=== PATIENT | male | born 1970 | race African-American/Black ===

== ENCOUNTER 2023-06-30 10:40 | Emergency (ER) | payer MEDICAID ==
[~2023-06-30] VITALS: Ht 175.3 cm; Wt 146.0 kg
[2023-06-30 10:53] VITALS: TEMP 98.7; O2SAT 96
[2023-06-30 11:45] VITALS: BP 159/102; PULSE 110; RESP 18
[2023-06-30] MEDS ORDERED: LIDOCAINE HCL/PF 1% 10 MG/ML 5ML VIAL INFIL ONE ×2 (11:45→12:30)
[2023-06-30] MEDS ORDERED: IBUPROFEN 600MG TABLET PO ONE (11:45)
[2023-06-30] MEDS ORDERED: BACITRACIN ZINC OINT UDPKT TOP ONE (11:45)
[2023-06-30] MEDS ORDERED: CEPH500C2 MT (13:09)
[2023-06-30] MEDS ORDERED: SULF1TAB48 PO (13:09)
[2023-06-30] MEDS ORDERED: IBUP-2029 PO (13:09)
== END 2023-06-30 13:42 | disposition home or self-care (01) ==
LOC: ER 10:40
DX: L02.31 Cutaneous abscess of buttock (principal)
CPT/HCPCS: 82962; 10060; 99283; J3490; Z7610 ×2

== ENCOUNTER 2023-07-13 10:19 | Emergency (ER) | payer MEDICAID ==
[~2023-07-13] VITALS: Ht 175.3 cm; Wt 146.0 kg
[~2023-07-13 10:19] MED LIST: CEPH500C2 MT; IBUP-2029 PO; SULF1TAB48 PO
[2023-07-13 10:27] VITALS: BP 131/89; PULSE 89; RESP 16; TEMP 98.7; O2SAT 99
[2023-07-13] MEDS ORDERED: BACITRACIN ZINC OINT UDPKT TOP ONE (10:45)
[2023-07-13] MEDS ORDERED: LIDOCAINE HCL/PF 1% 10 MG/ML 5ML VIAL INFIL ONE (10:45)
[2023-07-13] MEDS ORDERED: CLIN-116 MT (12:36)
== END 2023-07-13 12:47 | disposition home or self-care (01) ==
LOC: ER 10:19
DX: L02.31 Cutaneous abscess of buttock (principal)
CPT/HCPCS: 10060; 99283; J3490; Z7610 ×2

== ENCOUNTER 2023-12-28 10:56 | Emergency (ER) | payer MEDICAID ==
[~2023-12-28] VITALS: Ht 177.8 cm; Wt 119.0 kg
[~2023-12-28 10:56] MED LIST changes: +CLIN-116 MT
[2023-12-28 11:10] VITALS: O2SAT 97
[2023-12-28] MEDS: LIDOCAINE HCL/PF 1% 10 MG/ML 5ML VIAL INFIL ONE (13:30)
[2023-12-28] MEDS: BACITRACIN ZINC OINT UDPKT TOP ONE (13:30)
[2023-12-28] MEDS ORDERED: BO1 TP (14:02)
[2023-12-28 14:56] VITALS: BP 118/77; PULSE 91; RESP 14; TEMP 98.1
== END 2023-12-28 14:57 | disposition home or self-care (01) ==
LOC: ER 10:56
DX: L02.32 Furuncle of buttock (principal)
CPT/HCPCS: 10060; 99283; J3490; Z7610 ×4; 99282

== ENCOUNTER 2024-01-04 19:45 | Emergency (ER) | payer MEDICAID ==
[~2024-01-04] VITALS: Ht 175.3 cm; Wt 114.0 kg
[~2024-01-04 19:45] MED LIST changes: +BO1 TP
[2024-01-04 20:12] VITALS: O2SAT 97
[2024-01-05] MEDS: LIDOCAINE HCL/EPINEPHRINE 1%-EPI 1:100,000 20 ML VIAL INFIL ONE (00:19)
[2024-01-05] MEDS: BACITRACIN ZINC OINT UDPKT TOP ONE (00:19)
[2024-01-05 01:42] VITALS: BP 121/66; PULSE 83; RESP 17; TEMP 97.8
[2024-01-05] MEDS ORDERED: AMOX1TAB16 MT (01:45)
[2024-01-05] MEDS ORDERED: SULF1TAB48 MT (01:45)
== END 2024-01-05 01:59 | disposition home or self-care (01) ==
LOC: ER 19:45
DX: L73.9 Follicular disorder, unspecified (principal); L02.31 Cutaneous abscess of buttock
CPT/HCPCS: 10060; 99283; J3490; Z7610 ×3